=== PATIENT | male | born 1930 | race Caucasian/White ===

== ENCOUNTER 2016-07-28 11:45 | Emergency (ER) | payer OTHER ==
--- NOTE | 2016-07-28 13:07 | Diag Imaging Result Document ---
PROCEDURE NAME: CHEST-2 VIEWS - 07/28/2016 CHEST X-RAY 2 VIEWS: COMPARISON: 05/26/2016, 05/27/2016. FINDINGS: Lung volumes are critically low with bibasilar linear atelectasis similar to prior. There is a stable left PICC line in good position. No new or focal infiltrates. Heart size is normal. IMPRESSION: No change from prior.
[2016-07-28 13:50] LABS: MANUAL DIFF NEEDED? NO
[2016-07-28 13:53] LABS: BASO% 0.4 % (0.0-0.8); EOS# 0.06 X1000 (0.0-0.7); EOS% 0.7 % (0.0-10.0); HEMATOCRIT 45.6 % (42.0-52.0); HEMOGLOBIN 14.5 g/dL (14.0-18.0); IMM GRAN# 0.06 X1000 (0.0-0.04); IMM GRAN% 0.7 % (0.0-0.5); LYMPH# 0.76 X1000 (1.2-3.4); MCH 29.5 PG (27-31); MCHC 31.8 g/dL (33-37); MCV 92.7 FL (81-99); MONO# 0.46 X1000 (0.11-0.59); MONO% 5.4 % (1.7-9.3); MPV 10.4 FL (7.4-10.4); NEUT% 83.8 % (42.2-75.2); PLT 161 X1000 (130-400); RBC 4.92 XMIL (4.7-6.1)
--- NOTE | 2016-07-28 14:00 | PROVIDER DOCUMENTATION ---
HPI-Respiratory General - General Chief Complaint: Cough Stated Complaint: COUGH Time Seen by Provider: 07/28/16 13:24 Source: patient, family Allergies/Adverse Reactions: Patient Allergies Allergy/AdvReac Type Severity Reaction Status Date / Time No Known Allergies Allergy Unverified 01/15/16 08:22 Home Medications: Alprazolam [Xanax] 0.5 mg PO BID 06/15/13 Aspirin 81 mg PO DAILY 06/15/13 Clopidogrel Bisulfate [Plavix] 75 mg PO DAILY 06/15/13 Montelukast [Singulair] 10 mg PO DAILY 06/15/13 Tamsulosin [Flomax] 0.4 mg PO DAILY 06/15/13 Omeprazole [Prilosec] 20 mg PO DAILY@0700 01/15/16 - History of Present Illness-Resp Nature of Presenting Problem: Reports to er with cc of runny nose and productive cough x 1 week . Daughter reports home health sent pt to er for possible pneumonia.. Pt is on home nebulizer as needed. Quality of Pain: reports: none Severity in ED: reports: moderate Onset/Duration: reports: 1 week ago Timing: reports: still present Exposure: reports: unknown cause Cough Quality/Degree: reports: productive cough Current Respiratory Medication Therapy: Initiated see nurses note Similar Symptoms Previously?: No Recently seen or treated by another doctor?: No Review of Systems - Adult - REVIEW OF SYSTEMS - ADULT Constitutional: denies: chills, fever, fatique Eyes: reports: no symptoms reported Ears, Nose, Mouth & Throat: reports: sinus problem. denies: ear pain, mouth/ dental pain, throat pain Cardiovascular: reports: no symptoms reported Respiratory: reports: cough. denies: pleurisy, shortness of breath, wheezing Gastrointestinal: denies: diarrhea, nausea, rectal bleeding Genitourinary: reports: no symptoms reported Musculoskeletal: reports: no symptoms reported Integumentary: reports: no symptoms reported Neurological: reports: no symptoms reported Psychiatric: reports: no symptoms reported Endocrine: reports: no symptoms reported Hematologic/Lymphatic: reports: no symptoms reported Allergic/Immunologic: reports: no symptoms reported All Other Systems: Reviewed and Negative Past History - Adult - PAST MEDICAL HISTORY-ADULT Review of Records: reports: Nursing Assessment Review, Medications Reviewed Major Childhood Illnesses: reports: denies history Cardiovascular: reports: HTN Genitourinary: reports: kidney disease, prostate cancer Neurological: reports: CVA Other Conditions: reports: denies history - PRIOR SURGERIES/PROCEDURES Surgical/Procedure History: reports: orthopedic (extremity) - IMMUNIZATION STATUS Childhood Immunizations: See Nurse Assessment Flu Vaccine: See Nurse Assessment - FAMILY HISTORY Family History: reviewed, not pertinent - SOCIAL HISTORY Smoking: denies Substance Use: none/never Physical Exam-General - PHYSICAL EXAM-ADULT Initial Vital Signs Reviewed: Yes - CONSTITUTIONAL General Appearance: appears well, alert - EYES Eyes: PERRL/EOMI - HEAD, EARS, NOSE, MOUTH & THROAT HENMT: normocephalic/atraumatic, moist mucous membranes, normal ENT inspection, TMs normal, pharynx normal - NECK Neck: non-tender - RESPIRATORY Respiratory: chest non-tender, lungs clear, normal breath sounds, no pleuratic chest pain, no respiratory distress, no accessory muscle use - CARDIOVASCULAR Cardiovascular: normal peripheral pulses, regular rate, rhythm, no edema - GASTROINTESTINAL (ABDOMEN) Abdominal Exam: normal bowel sounds, non tender, soft - MUSCULOSKELETAL Back Exam: normal inspection Extremity: normal range of motion, non-tender - SKIN Integumentary: normal color, normal turgor, warm/dry - PSYCHIATRIC Psych/Mental Status: normal mood/affect, normal thought content, normal thought process, oriented x 3 Progress - PLAN OF CARE/RESULTS Progress/Plan/Lab Results: Orders Category Date Time Status CHEST-2 VIEWS [RAD] Stat Exams 07/28/16 12:05 Draft BNP [PRO B-NATRIURETIC PEPTIDE] Stat Lab 07/28/16 13:36 Received CBC WITH ELECTRONIC DIFF [HEME] Stat Lab 07/28/16 13:36 Completed COMPREHENSIVE METABOLIC PANEL [CHEM] Stat Lab 07/28/16 13:36 Received INFLUENZA SCREEN A/B Stat Lab 07/28/16 13:54 Uncollected Vital Signs - 24 hr 07/28/16 11:50 Temperature 97.9 F Pulse Rate 89 Respiratory 20 Rate Blood Pressure 169/89 O2 Sat by Pulse 96 Oximetry Laboratory Tests 07/28/16 13:36 WBC 8.45 RBC 4.92 Hgb 14.5 Hct 45.6 MCV 92.7 MCH 29.5 MCHC 31.8 L RDW Std Deviation 13.2 Plt Count 161 MPV 10.4 Immature Gran % (Auto) 0.7 H Neut % (Auto) 83.8 H Lymph % (Auto) 9.0 L [place] % (Auto) 5.4 Eos % (Auto) 0.7 Baso % (Auto) 0.4 Immature Gran # (Auto) 0.06 H Neut # (Auto) 7.08 H Lymph # (Auto) 0.76 L [place] # (Auto) 0.46 Eos # (Auto) 0.06 Baso # (Auto) 0.03 Laboratory Tests 07/28/16 07/28/16 07/28/16 13:36 13:36 13:36 WBC 8.45 RBC 4.92 Hgb 14.5 Hct 45.6 MCV 92.7 MCH 29.5 MCHC 31.8 L RDW Std Deviation 13.2 Plt Count 161 MPV 10.4 Immature Gran % (Auto) 0.7 H Neut % (Auto) 83.8 H Lymph % (Auto) 9.0 L [place] % (Auto) 5.4 Eos % (Auto) 0.7 Baso % (Auto) 0.4 Immature Gran # (Auto) 0.06 H Neut # (Auto) 7.08 H Lymph # (Auto) 0.76 L [place] # (Auto) 0.46 Eos # (Auto) 0.06 Baso # (Auto) 0.03 Sodium 141 Potassium 4.6 Chloride 101 Carbon Dioxide 27 Anion Gap 13 BUN 15 Creatinine 0.9 Estimated GFR/1.73 m2 > 60 BUN/Creatinine Ratio 17 Glucose 106 H Calculated Osmolality 283 Calcium 9.9 Total Bilirubin 0.28 AST 19 ALT 17 Alkaline Phosphatase 55 [id number] Pept 296 Total Protein 7.2 Albumin 4.1 Globulin 3.1 Albumin/Globulin Ratio 1.3 - XRAY 1 XRAY: Bilateral XRAY Study: Chest Impression: Normal XRAY Interpretation: nad Departure - Departure Time of Disposition Order: 14:37 DIAGNOSIS: Viral upper respiratory infection Disposition: HOME 01 Certified Medical Emergency: Emergent Condition: Stable Additional Instructions: Follow up with pcp ED Follow Up Instructions: You have been treated by a care provider in the Emergency Department. These instructions are being provided to you so you can have an understanding of how to care for yourself upon discharge. Upon discharge from the Emergency Department, you are responsible for making arrangements for follow-up care by a physician of your choice. Take all prescribed medications as directed. Return to the Emergency Department immediately for any new or worsening symptoms. You may call the Physician Referral phone number at [phone] to obtain a list of Physicians who are taking new patients. Attestation - Scribe Verification/Attestation Scribe:: David Harp Acting as Scribe for:: Janel Raya Jr Scribe documention review:: This chart was documented by a scribe and accurately reflects the service the provider performed and the decisions made by the provider.
[2016-07-28 14:09] LABS: AGAP 13; ALBUMIN 4.1 g/dL (3.5-5.0); ALKALINE PHOSPHATASE 55 U/L (32-122); BUN 15 mg/dL (8-22); CALCIUM 9.9 mg/dL (8.8-10.2); CHLORIDE 101 mmol/L (98-107); COSMO 283; GOT 19 U/L (10-34); GPT 17 U/L (10-44); POTASSIUM 4.6 mmol/L (3.5-5.1); SODIUM 141 mmol/L (136-145); TCO2 27 mmol/L (25-35); TOTAL BILIRUBIN 0.28 mg/dL (0.20-1.00); TOTAL PROTEIN 7.2 g/dL (6.3-8.3)
[2016-07-28 14:54] VITALS: BP 181/78
== END 2016-07-28 14:57 | disposition home or self-care (01) ==
LOC: ED 11:45
DX: J06.9 Acute upper respiratory infection, unspecified (principal); R09.89 Other specified symptoms and signs involving the circulatory and respiratory systems; R05 Cough; I10 Essential (primary) hypertension; Z85.46 Personal history of malignant neoplasm of prostate; Z86.73 Personal history of transient ischemic attack (TIA), and cerebral infarction without residual deficits; Z79.899 Other long term (current) drug therapy; Z79.82 Long term (current) use of aspirin; Z79.02 Long term (current) use of antithrombotics/antiplatelets
CPT/HCPCS: 36415; 71020; 80053; 83880; 85025; 87804; 99283